=== PATIENT | male | born 1970 ===

== ENCOUNTER 2019-05-15 11:21 | Outpatient (CLI) | payer OTHER | END 2019-05-15 11:26 | disposition home or self-care (01) | LOC: RAD 11:21 | DX: M45.7 Ankylosing spondylitis of lumbosacral region (principal) ==

== ENCOUNTER 2019-11-19 07:07 | Outpatient (CLI) | payer OTHER | END 2019-11-19 07:26 | disposition home or self-care (01) | LOC: TOM 07:07 | DX: R31.29 Other microscopic hematuria (principal) ==

== ENCOUNTER 2022-06-23 09:37 | Outpatient (CLI) | payer OTHER | END 2022-06-23 09:46 | disposition home or self-care (01) | LOC: RAD 09:37 | DX: M48.062 Spinal stenosis, lumbar region with neurogenic claudication (principal) ==